=== PATIENT | female | born 1965 | race Caucasian/White ===

== ENCOUNTER → 2016-12-10 14:49 | Outpatient (CLI) | payer MEDICARE, MEDICAID | END | disposition home or self-care (01) | LOC: D.RAD 14:49 | DX: M54.2 Cervicalgia (principal) ==

== ENCOUNTER → 2016-12-19 16:21 | Outpatient (CLI) | payer MEDICARE, MEDICAID | END | disposition home or self-care (01) | LOC: D.RAD 16:21 | DX: M25.511 Pain in right shoulder (principal) ==

== ENCOUNTER → 2017-03-31 16:54 | Outpatient (CLI) | payer MEDICARE, MEDICAID | END | disposition home or self-care (01) | LOC: D.MAMMO 11:45 | DX: Z12.31 Encounter for screening mammogram for malignant neoplasm of breast (principal) ==

== ENCOUNTER → 2018-01-23 08:00 | Outpatient (CLI) | payer MEDICARE, MEDICAID | END | disposition home or self-care (01) | LOC: D.CT 08:00 | DX: J32.9 Chronic sinusitis, unspecified (principal) ==

== ENCOUNTER → 2019-05-13 15:36 | Outpatient (CLI) | payer MEDICARE, MEDICAID | END | disposition home or self-care (01) | LOC: D.MRI 15:36 | PROVIDERS: ATTEND Family Medicine | DX: M25.522 Pain in left elbow (principal) ==

== ENCOUNTER → 2020-11-27 14:57 | Outpatient (CLI) | payer MEDICARE, MEDICAID | END | disposition home or self-care (01) | LOC: D.MRI 14:57 | PROVIDERS: ATTEND Family Medicine | DX: M25.519 Pain in unspecified shoulder (principal) ==